=== PATIENT | female | born 1965 | race Hispanic/Latino ===

== ENCOUNTER 2024-09-05 06:57 | Day surgery (SDC) | payer OTHER ==
[2024-09-05] VITALS (11 sets, daily range): BP systolic 95–133; BP diastolic 52–68; PULSE 55–71; RESP 15–18; TEMP 97–97.6
[~2024-09-05] VITALS: Ht 162.6 cm; Wt 72.6 kg
[~2024-09-05 06:57] MED LIST: ASPIRIN PO; CHOL100044 PO; FIBER PO; MULTIVITAMIN PO
[2024-09-05] MEDS: 0.9%NACL 1000ML 1,000 ML IV ONE (08:44)
[2024-09-05] MEDS ORDERED: proPOFol 10 MG/ML 20ML VIAL IV ONE (09:15)
[2024-09-05] MEDS ORDERED: LIDOCAINE HCL 1% 20 ML VIAL ONE (09:16)
== END 2024-09-05 10:36 | disposition home or self-care (01) ==
LOC: ENDO 06:57 → DAH 06:57 → ENDO 10:36
PROVIDERS: ATTEND Internal Medicine Gastroenterology
DX: R10.13 Epigastric pain (principal); K29.50 Unspecified chronic gastritis without bleeding; K31.7 Polyp of stomach and duodenum; K31.89 Other diseases of stomach and duodenum; K75.81 Nonalcoholic steatohepatitis (NASH); K59.00 Constipation, unspecified; K64.9 Unspecified hemorrhoids; E78.5 Hyperlipidemia, unspecified; R14.2 Eructation; R11.0 Nausea; R14.0 Abdominal distension (gaseous); E78.00 Pure hypercholesterolemia, unspecified; Z79.899 Other long term (current) drug therapy
CPT/HCPCS: 43251; 43239; J7030 ×2; J2704; A4615; A4215 ×2; A4223; A4222; A4221; A4663; A4606; J3490

== ENCOUNTER 2024-09-19 06:31 | Day surgery (SDC) | payer OTHER ==
[2024-09-19] VITALS (8 sets, daily range): BP systolic 91–130; BP diastolic 49–77; PULSE 56–68; RESP 15–18; TEMP 97.5–98.1
[~2024-09-19] VITALS: Ht 162.6 cm; Wt 73.9 kg
[~2024-09-19 06:31] MED LIST changes: +ASCO500C18 PO; +LORA10TA7 PO; +MILK175C5 PO; +TURM500C13 PO; +VITA-348 PO
[2024-09-19] MEDS: 0.9%NACL 1000ML 1,000 ML IV ONE (07:43)
[2024-09-19] MEDS ORDERED: proPOFol 10 MG/ML 20ML VIAL IV ONE ×2 (09:54→09:55)
--- NOTE | 2024-09-19 11:40 | NUR ---
Full and complete Discharge Instructions given to Patient and Family both verbally and in writing.. All questions answered.Voiced understanding to GI procedure precautions and Follow Up. PIV removed with catheter tip intact. Denies c/o pain or discomfort. W/C to POV with Family to home.
== END 2024-09-19 11:35 | disposition home or self-care (01) ==
LOC: ENDO 06:31 → DAH 06:31 → ENDO 11:35
PROVIDERS: ATTEND Internal Medicine Gastroenterology
DX: R19.4 Change in bowel habit (principal); D12.2 Benign neoplasm of ascending colon; K29.70 Gastritis, unspecified, without bleeding; K44.9 Diaphragmatic hernia without obstruction or gangrene; K31.7 Polyp of stomach and duodenum; R14.2 Eructation; K64.9 Unspecified hemorrhoids; K57.81 Diverticulitis of intestine, part unspecified, with perforation and abscess with bleeding; R14.0 Abdominal distension (gaseous); E78.00 Pure hypercholesterolemia, unspecified; Z87.442 Personal history of urinary calculi; Z79.899 Other long term (current) drug therapy
CPT/HCPCS: 45380; 45385; J7030 ×2; J2704 ×2; A4620; A4215 ×2; A4223; A4657; A7002; A4222; A4221; A4663; A4606; J3490